=== PATIENT | male | born 1995 | race Caucasian/White ===

== ENCOUNTER 2023-12-29 09:29 | Emergency (ER) | payer BC, SELFPAY ==
[2023-12-29 09:31] VITALS: BP 141/97; PULSE 77; RESP 18; TEMP 36.1; O2SAT 100; BMI 26.5
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
[2023-12-29 10:39] VITALS: BP 147/78; PULSE 70; RESP 16; TEMP 36.2; O2SAT 97
== END 2023-12-29 10:42 | disposition home or self-care (01) ==
PROVIDERS: Emergency Provider Emergency Medicine; Visit Provider Emergency Medicine
DX: S62.357A Nondisplaced fracture of shaft of fifth metacarpal bone, left hand, initial encounter for closed fracture (principal); V89.2XXA Person injured in unspecified motor-vehicle accident, traffic, initial encounter
CPT/HCPCS: 29125; 73130; 99282

== ENCOUNTER 2024-03-02 09:10 | Emergency (ER) | payer BC, SELFPAY ==
[2024-03-02 09:10] VITALS: BP 120/77; PULSE 73; RESP 14; TEMP 36.7; O2SAT 100
--- NOTE | 2024-03-02 09:17 | EDS_ITS ---
HPI History of Present Illness Chief Complaint: Laceration Detail of Chief Complaint: Left index finger laceration Informant: patient Onset/Context/Timing Onset: Today Narrative Narrative: Patient presents secondary to left index finger laceration. He was trimming his hedges this morning when he cut his left index finger with the tremors. He is right-hand dominant. Bleeding well-controlled at this time. Patient denies significant past medical history. 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 PFSH PFSH Medical History no medical history no medical history Home Medications ?Medication ?Instructions ?Recorded ?Last Taken ?Type NK 03/02/24 Unknown History Allergy/AdvReac Type Severity Reaction Status Date / Time No Known Allergies Allergy Verified 03/02/24 09:11 Social History Smoking Status: Never smoker ROS ROS ED Constitutional Constitutional ED: Denies chills or fever(s) Cardiovascular Cardiovascular: Denies chest pain Respiratory/Chest Respiratory/Chest: Denies dyspnea Musculoskeletal Musculoskeletal: Reports extremity pain; Denies back pain Integumentary Reports other Details: Left index finger laceration ; Denies Abrasions or rash Neurologic Neurologic: Denies weakness Psychiatric Psychiatric: Denies anxiety or depression Allergic/Immunologic Allergic/Immunologic ED: Denies lip swelling or urticaria EXAM Physical Exam Const Vital Signs: 03/02/24 09:10 Temperature 98.1 F Temperature Source Temporal Pulse Rate 73 Respiratory Rate 14 Blood Pressure 120/77 Blood Pressure Mean 91 Pulse Ox 100 Oxygen Delivery Method Room Air Positive well nourished and well developed General Appearance ED: well developed HEENT Reports moist mucous membranes Eyes EOMs intact bilaterally Chest Wall inspection of chest normal and palpation of chest normal Resp normal respiratory effort and clear to auscultation bilaterally Cardio regular rate and regular rhythm GI non-tender Palpation: soft Extremity Extremity Narrative: Patient has 2 parallel lacerations each measuring approximate 1 cm along the radial side of the distal phalanx left index. Good range of motion noted. Patient does report decreased sensation distal to the lacerations over the very end of the finger on the radial side. Good cap refill is noted. Neuro oriented x3 Psych mental status grossly normal MDM MDM MDM Narrative Medical decision making narrative: Six cc 1% lidocaine is used in a digital block fashion. Patient receives good anesthesia. Wound was thoroughly cleansed and irrigated. A total of 4 simple interrupted sutures were placed across the wound. 5-0 Ethilon was used. Good hemostasis noted. Dressing is applied and wound care discussed. Given the patient does have decreased sensation I will refer him to orthopedic hand surgery for follow-up as needed. Patient have sutures removed in 1 week. He will get a tetanus shot later today. Discharge Plan Triage Chief Complaint: Laceration ED Provider: Halie Felton Dx/Rx/DC Orders Clinical Impression: Laceration of left index finger Instructions: ED Laceration, Hand: All Closures, ED Paraesthesias Prescriptions: No Action NK Primary Care Provider: Care Physician,No Primary Referrals: Ольга Flanagan MD [Non-Staff] - 1 Week if not improving Care Physician,No Primary [Primary Care Provider] - Activity Restrictions/Additional Instructions: You need to have your stitches removed in 1 week. You can follow-up at an urgent care or emergency room for this. If you continue to have decree sensation to the distal tip of the finger you can follow-up with orthopedic hand surgery for further evaluation as discussed. Print Language: Croatian Disposition Disposition: Home, Self Care
[2024-03-02] MEDS: Lidocaine 1% (20 ml mdv) 20 ML Vial INFILT (09:21)
[2024-03-02 10:06] VITALS: BP 120/77; PULSE 73; RESP 14; TEMP 36.7; O2SAT 100
== END 2024-03-02 10:07 | disposition home or self-care (01) ==
PROVIDERS: Emergency Provider Emergency Medicine; Visit Provider Emergency Medicine
DX: S61.211A Laceration without foreign body of left index finger without damage to nail, initial encounter (principal); W29.3XXA Contact with powered garden and outdoor hand tools and machinery, initial encounter; Y93.89 Activity, other specified
CPT/HCPCS: 12001; 99283